=== PATIENT | male | born 2000 | race Caucasian/White ===

== ENCOUNTER → 2022-04-15 | Outpatient (CLI) | payer OTHER ==
[2022-04-18 01:10] LABS: CHLAMYDIA TRACHOMATIS, NAA Negative (Negative)
== END ==
LOC: LAB 19:01 → LAB SHORT 19:01
PROVIDERS: Physician Assistant
DX: N34.1 Nonspecific urethritis (principal); R30.0 Dysuria
CPT/HCPCS: 87086; 87491; 87591

== ENCOUNTER 2025-08-17 13:03 | Emergency (ER) | payer OTHER | END 2025-08-17 15:17 | disposition home or self-care (01) | LOC: ER 13:03 | DX: R00.2 Palpitations (principal); R07.9 Chest pain, unspecified; Q67.6 Pectus excavatum ==

== ENCOUNTER 2025-09-12 17:14 | Emergency (ER) | payer OTHER ==
[~2025-09-12] VITALS: Ht 180.3 cm; Wt 72.6 kg
[~2025-09-12 17:14] MED LIST: ALMACONE SUSPE355 ML PO; CEPH500 PO; FAMO20 PO; HYDPAM100 PO; ONDA4ODT MM
[2025-09-12 17:36] VITALS: BP 156/93
== END 2025-09-12 19:08 | disposition home or self-care (01) ==
LOC: ER 17:14
DX: R07.89 Other chest pain (principal); F17.290 Nicotine dependence, other tobacco product, uncomplicated
CPT/HCPCS: 71046; 99284-25